=== PATIENT | male | born 1955 | race Caucasian/White ===

== ENCOUNTER 2016-12-19 00:28 | Emergency (ER) | payer MEDICAID ==
[~2016-12-19] VITALS: Ht 175.3 cm; Wt 67.6 kg
[~2016-12-19 00:28] MED LIST: CLIN300C93 PO; METH-356 PO
[2016-12-19 00:31] VITALS: BP 178/80
[2016-12-19] MEDS ORDERED: HYDROcodone/APAP 5/325 TABLET ONE (01:48)
[2016-12-19] MEDS ORDERED: IBUPROFEN 200 MG TABLET ONE (01:48)
[2016-12-19] MEDS ORDERED: CLINDAMYCIN 150 MG CAPSULE PO ONE (02:00)
[2016-12-19] MEDS ORDERED: CLINDAMYCIN 300 MG CAPSULE PO ONE (02:00)
[2016-12-19] MEDS ORDERED: HYDROcodone/APAP 5/325 TABLET PO ONE (02:00)
[2016-12-19] MEDS ORDERED: IBUPROFEN 200 MG TABLET PO ONE (02:00)
== END 2016-12-19 02:07 | disposition left against medical advice (07) ==
LOC: ED 01:01
DX: L03.116 Cellulitis of left lower limb (principal); F11.20 Opioid dependence, uncomplicated